=== PATIENT | male | born 1955 | race Caucasian/White ===

== ENCOUNTER → 2023-07-30 11:18 | Outpatient (REF) | payer MEDICARE, OTHER, SELFPAY | LOC: HWRAD 11:18 | PROVIDERS: ATTENDING PHYSICIAN Podiatrist Foot & Ankle Surgery; FAMILY PHYSICIAN Nurse Practitioner Family | DX: M19.072 Primary osteoarthritis, left ankle and foot (principal) | CPT/HCPCS: 73610; 73630 ==

== ENCOUNTER → 2023-12-28 16:31 | Outpatient (REF) | payer MEDICARE, OTHER, SELFPAY | LOC: HWRAD 16:31 | PROVIDERS: ATTENDING PHYSICIAN Nurse Practitioner Family | DX: J06.9 Acute upper respiratory infection, unspecified (principal) | CPT/HCPCS: 71046 ==

== ENCOUNTER 2024-12-11 11:02 | Emergency (ER) | payer MEDICARE, OTHER, SELFPAY ==
[2024-12-11 11:08] VITALS: BP 124/64
--- NOTE | 2024-12-11 11:34 | ED.GENMED ---
History of Present Illness
General
Chief Complaint: Cough
Time Seen by Provider: 12/11/24 11:34
History of Present Illness
History of Present Illness:
FOCUSED PAST MEDICAL HISTORY
- Dementia
REVIEW OF OLD RECORDS
- No old records available for review
Note:
CHIEF COMPLAINT(S)
Aspiration during breakfast.
HISTORY OF PRESENT ILLNESS
The patient is a 69-year-old male who experienced aspiration while eating cereal and drinking coffee. During breakfast, he regurgitated the contents, which came out of his nose. This has happened before but not to this extent. Currently, the patient
denies difficulty breathing and appears well, with oxygen saturation levels at 100%. There is no history of the patient requiring supplemental oxygen.
CHRONIC MEDICAL CONDITIONS SIGNIFICANTLY AFFECTING CARE
The patient has a history of Lewy body dementia and Parkinsonism, which includes symptoms such as cognitive deficits, masked facies, and bradykinesia.
PHYSICAL EXAM
General: Alert, no acute distress.
Lungs: Clear lung sounds, no significant evidence of aspiration.
Neurological: Mild cognitive deficits observed, masked facies, bradykinesia.
Cardiovascular: Oxygen saturation at 100%.
Psychiatric: Some mild cognitive deficits noted, patient has history of dementia
PLAN
- Obtain a chest X-ray to rule out significant aspiration.
- Consider discharge if the chest X-ray is unremarkable, as the patient presents with clear lungs and no symptoms of respiratory distress.
DIFFERENTIAL DIAGNOSIS
The Differential Diagnosis includes, in no particular order and is not limited to:
- Aspiration pneumonia
- Dysphagia
- Gastroesophageal reflux disease
- Acute respiratory distress syndrome
- Foreign body aspiration
- Neurological disorder-induced swallowing difficulty
- Esophageal obstruction
- Chemical pneumonitis
- Chronic obstructive pulmonary disease exacerbation
- Heart failure with pulmonary congestion
Disposition:
SUMMARY OF ENCOUNTER
The patient, a 69-year-old male with a history of Lewy body dementia and Parkinsonism, was seen in the emergency department due to aspiration during breakfast, which involved regurgitating cereal and coffee. He did not experience difficulty
breathing, and his oxygen saturation was at 100%. A chest X-ray was performed, which showed no significant aspiration, and lung examination revealed clear sounds. Thus, there is no need for further action regarding antibiotics unless symptoms like
low oxygen levels, persistent coughing, or shortness of breath develop.
DISPOSITION
Discharge
PLAN
Discharge the patient as his vital signs are stable, oxygen levels are normal, and the chest X-ray showed no evidence of significant aspiration.
INDEPENDENT REVIEW OF LABS AND INTERPRETATION OF TESTS
My independent interpretation of the chest X-ray indicates no significant aspiration.
MEDICAL DECISION MAKING
-Chronic conditions affecting care include Lewy body dementia and Parkinsonism. The differential diagnosis considered included: Aspiration pneumonia, dysphagia, gastroesophageal reflux disease, acute respiratory distress syndrome, foreign body
aspiration, neurological disorder-induced swallowing difficulty, esophageal obstruction, chemical pneumonitis, chronic obstructive pulmonary disease exacerbation, heart failure with pulmonary congestion.
-Data:
Category 1
My independent interpretation of the chest X-ray indicates no significant aspiration.
-Risk:
Consideration of Admission/Observation: Escalation of care including admission/observation was considered given the complexity and risk of the patients presenting complaint, exam findings, and/or their underlying comorbidities. However, ultimately I
feel the patient is safe for outpatient management with close follow-up. Reasoning: Work-up reassuring, does not reveal any acute life/organ threatening processes, patients symptoms well controlled upon reevaluation, reexamination is reassuring,
vitals are stable, patient agreeable with discharge, reliable for follow-up.
DIAGNOSIS
Choking episode
Dysphagia, unspecified (R13.10)
RADIOLOGY
- Chest x-ray clear
Phy Exam
Physical Exam
Physical Exam:
See HPI
Course
Orders/Labs/Results
Orders:
Orders
12/11/24 11:35
CR Chest - 2 Views Urgent
Comment:
Reason For Exam: choking episode cough eval for aspiration
Vital Signs
Initial and Last Documented VS:
Initial Vital Signs
Temp Pulse Resp BP Pulse Ox
36.8 C 68 16 124/64 99
12/11/24 11:08 12/11/24 11:08 12/11/24 11:08 12/11/24 11:08 12/11/24 11:08
Last Documented Vital Signs
Temp Pulse Resp BP Pulse Ox
36.8 C 56 18 127/74 100
12/11/24 11:08 12/11/24 12:36 12/11/24 12:36 12/11/24 12:36 12/11/24 12:36
*Pulse Oximetry
SaO2: 99
Oxygen Mode of Delivery: Room air
Patient hypoxic: no
*Critical Care Note
Total Time (30-74mins, 75-104mins- exclusive of procedures): Not Applicable
ED Attending Note
-
Portions of this chart may have been created with voice recognition software.� Occasional wrong word or��sound alike� substitutions may have occurred due to the inherent limitations of voice recognition software.
Discharge Plan
Departure
Patient Disposition: Home (Routine Discharge)
Date of Disposition: 12/11/24
Time of Disposition: 13:05
Patient with high blood pressure during this ER visit?: Yes
Discharge Problem:
Choking episode
Instructions: Choking, BLOOD PRESSURE
Referrals:
Claudia Donaldson CRNP [Family Provider, Family Practice]
Activity Restrictions/Additional Instructions:
Chest x-ray shows no sign of abnormality. Your oxygen levels were as high as 100%. Other vital signs are normal. Return here if worse or other concerns.
Interventions
Interventions:
*General Assessment Last Done: 12/11/24 11:08
*Neglect/Abuse Screening Last Done: 12/11/24 13:06
*ED- Fall Risk Assessment Last Done: 12/11/24 12:31
*ED COVID-19 Vaccine History Last Done: 12/11/24 12:31
*ED Influenza Vaccine History Last Done: 12/11/24 12:31
ED- Pulmonary Assessment Last Done: 12/11/24 12:31
Discharge Date and Time
Print Language: TELUGU
[2024-12-11 12:31] VITALS: BMI 25.7
--- NOTE | 2024-12-11 12:35 | EDRN ---
Received patient on stretcher. Patient stated that he developed a cough after he had trouble swallowing food. Patient denies cough at this time. Denies SOB and chest pain.
[2024-12-11 12:36] VITALS: BP 127/74
[2024-12-11 13:14] VITALS: BP 127/74
== END 2024-12-11 13:15 | disposition home or self-care (01) ==
LOC: EMR 11:02
PROVIDERS: EMERGENCY PHYSICIAN Emergency Medicine; FAMILY PHYSICIAN Nurse Practitioner Family
DX: R09.89 Other specified symptoms and signs involving the circulatory and respiratory systems (principal); F02.80 Dementia in other diseases classified elsewhere, unspecified severity, without behavioral disturbance, psychotic disturbance, mood disturbance, and anxiety; G31.83 Neurocognitive disorder with Lewy bodies
CPT/HCPCS: 99283; 71046